=== PATIENT | female | born 1995 ===

== ENCOUNTER 2018-06-09 20:38 | Emergency (ER) | payer OTHER ==
[2018-06-09 21:01] VITALS: BP 136/93
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
[2018-06-09] MEDS ORDERED: Ibuprofen TAB* 600 MG PO ONE (21:57)
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
--- NOTE | 2018-06-10 11:50 | UC ---
- Progress Note Progress Note: 06/10/2018 I contacted Pt on her cell phone this morning for a f/u. Pt states she is feeling better, was able to sleep all night. Pt only c/o mild pain when she goes up the stairs.Pt was told final interpretation of lumbarsacral X-ray was unremarkable as per radiologist. Pt advised if any other symptoms arise to f /u w/ her PCP for further management. Pt has an appt w/ her Associate Product Integrity Engineer today. Pt understood and agreed. Kellie Durbin PA-C Discharge - Sign-Out/Discharge Documenting (check all that apply): Patient Departure - D/C home - Discharge Plan Condition: Stable Disposition: HOME Prescriptions: Ibuprofen TAB* [Motrin TAB* 600 MG] 600 mg PO Q6H PRN #30 tab PRN Reason: Pain Patient Education Materials: Acute Low Back Pain (ED), Low-Sodium Diet (ED), Hematoma (ED) [facility] [Primary Care Provider] - 2 Days Valente Ordaz MD [Medical Doctor] - 2 Days Additional Instructions: 1- Please take Ibuprofen PO as directed after meals for pain. 2- Wear a back support. Avoid strenuous exercise of heavy lifting. 3- If you develop severe lower back pain, or numbness or tingling sensation over the lower extremities, or urninary or fecal incontinence please go immediately to the ER for further management 4- Please follow up with Orthopedic Dr Ordaz or your PCP in 2-3 if not improvement of symptoms, for further management. 5- Your BP is elevated today. please decrease salt in your diet, monitor BP and if it continues to be elevated please f/u with your PCP for further management - Billing Disposition and Condition Condition: STABLE Disposition: Home
== END 2018-06-09 22:35 | disposition home or self-care (01) ==
LOC: UCEAST 20:38
DX: S80.11XA Contusion of right lower leg, initial encounter (principal); M54.5 Low back pain; E10.9 Type 1 diabetes mellitus without complications; R03.0 Elevated blood-pressure reading, without diagnosis of hypertension; Z91.040 Latex allergy status; Z88.8 Allergy status to other drugs, medicaments and biological substances; Z88.0 Allergy status to penicillin; Z79.4 Long term (current) use of insulin; V13.4XXA Pedal cycle driver injured in collision with car, pick-up truck or van in traffic accident, initial encounter; Y92.9 Unspecified place or not applicable
CPT/HCPCS: 72110; 99202; A9270-GY; G0463